=== PATIENT | female | born 1980 | race Hispanic/Latino ===

== ENCOUNTER 2017-11-24 08:35 | Emergency (ER) | payer SELFPAY ==
[2017-11-24 08:42] VITALS: RESP 16; O2SAT 96; BMI 30.9
--- NOTE | 2017-11-24 09:31 | ED PDOC ---
Lower Extremity Pain/Injury Time Seen by Provider: 11/24/17 08:54 Chief Complaint (Nursing): Lower Extremity Problem/Injury Chief Complaint (Provider): Right Lower Extremity Injury History Per: Patient History/Exam Limitations: no limitations Onset/Duration Of Symptoms: Hrs (x1) Additional Complaint(s): Sidra Bahena is a 37 year old female that presents to the ED after she stepped on a tack this morning through her shoe. Patient wants to know if she needs tetanus shot. She denies feeling any pain or prick. Past Medical History Reviewed: Historical Data, Nursing Documentation, Vital Signs Vital Signs: Last Vital Signs Temp 97.7 F 11/24/17 08:41 Pulse 91 H 11/24/17 08:41 Resp 16 11/24/17 08:41 BP 113/78 11/24/17 08:41 Pulse Ox 96 11/24/17 08:41 - Family History Family History: States: Unknown Family Hx - Immunization History Hx Tetanus Toxoid Vaccination: No (age 12) - Allergies Allergies/Adverse Reactions: Allergies Allergy/AdvReac Type Severity Reaction Status Date / Time No Known Allergies Allergy Verified 11/24/17 08:48 Review of Systems Musculoskeletal: Positive for: Other (Tack in right shoe, concern for prick in right foot) Physical Exam - Reviewed Nursing Documentation Reviewed: Yes Vital Signs Reviewed: Yes - Physical Exam Appears: Positive for: Non-toxic, No Acute Distress Head Exam: Positive for: ATRAUMATIC, NORMOCEPHALIC Skin: Positive for: Normal Color, Warm Eye Exam: Positive for: Normal appearance, EOMI, PERRL Pulses-Dorsalis Pedis (L): 2+ Pulses-Dorsalis Pedis (R): 2+ Pulses-Post. Tibialis (L): 2+ Pulses-Post. Tibialis (R): 2+ Extremity: Positive for: Normal ROM, Other (No puncture wound present to the bottom of the right foot.). Negative for: Tenderness, Deformity, Swelling Neurologic/Psych: Positive for: Alert, Oriented. Negative for: Motor/Sensory Deficits - ECG O2 Sat by Pulse Oximetry: 96 (RA) Pulse Ox Interpretation: Normal Medical Decision Making Medical Decision Making: Impression: Skin Symptom Plan: * Patient was offered tetanus booster, but refused it as there was no puncture wound in the bottom of her right foot. Patient stable for discharge home. Scribe Attestation: Documented by Shantell White, acting as a scribe for Natasha James MD. Provider Scribe Attestation: All medical record entries made by the Scribe were at my direction and personally dictated by me. I have reviewed the chart and agree that the record accurately reflects my personal performance of the history, physical exam, medical decision making, and the department course for this patient. I have also personally directed, reviewed, and agree with the discharge instructions and disposition. Disposition - Clinical Impression Clinical Impression: Skin symptom - Disposition Disposition: Routine/Home Disposition Time: 09:36 Condition: STABLE
[2017-11-24 09:38] VITALS: BP 150/84; PULSE 85; TEMP 98.4
== END 2017-11-24 09:39 | disposition home or self-care (01) ==
LOC: H.ER 08:35
DX: T14.8XXA Other injury of unspecified body region, initial encounter (principal)